=== PATIENT | female | born 1955 | race Caucasian/White ===

== ENCOUNTER 2016-09-28 18:55 | Emergency (ER) | payer BC ==
[2016-09-28 19:06] VITALS: BP 132/70; PULSE 91; RESP 18; TEMP 98.4
--- NOTE | 2016-09-28 19:30 | ED ---
General Adult HPI - General Chief complaint: Extremity Injury, Upper Stated complaint: finger pain Time Seen by Provider: 09/28/16 19:23 Source: patient, RN notes reviewed Mode of arrival: ambulatory Limitations: no limitations - History of Present Illness Initial comments: Patient 61-year-old female who presents emergency room today with a chief complaint of an injury to the right fifth digit that occurred around lunchtime today. She does admit that she was loading a donkey into a vehicle when it moved suddenly and caused injury to the fifth digit. She states she's been unable to extend at the PIP joint since. She does admit to pain locally to this area. She denies any other complaints or symptoms. She does admit she is right-handed. Patient denies any recent fever, chills, shortness of breath, chest pain, back pain, abdominal pain, nausea or vomiting, numbness or tingling , dysuria or hematuria, constipation or diarrhea, headaches or visual changes, or any other complaints. - Related Data Allergies Allergy/AdvReac Type Severity Reaction Status Date / Time No Known Allergies Allergy Verified 09/28/16 19:06 Review of Systems ROS Statement: Those systems with pertinent positive or pertinent negative responses have been documented in the HPI. ROS Other: All systems not noted in ROS Statement are negative. Past Medical History Past Medical History: No Reported History History of Any Multi-Drug Resistant Organisms: None Reported Past Surgical History: Orthopedic Surgery Additional Past Surgical History / Comment(s): ectopic knee Past Psychological History: No Psychological Hx Reported Smoking Status: Current every day smoker Past Alcohol Use History: None Reported Past Drug Use History: None Reported General Exam - General Exam Comments Initial Comments: General: The patient is awake and alert, in no distress, and does not appear acutely ill. Neck: The neck is supple, there is no tenderness or JVD. Cardiovascular: There is a regular rate and rhythm. No murmur, rub or gallop is appreciated. Respiratory: Lungs are clear to auscultation, respirations are non-labored, breath sounds are equal. No wheezes, stridor, rales, or rhonchi. Musculoskeletal: She has right fifth digit flexed at the PIP joint. Locally tender in this area with mild tenderness over the MCP joint. Sensations are intact. No other bony tenderness on exam. Cap refill less than 2 seconds. Pulses equal bilateral 2+ Neurological: A&O x 3. CN II-XII intact, There are no obvious motor or sensory deficits. Coordination appears grossly intact. Speech is normal. Skin: Skin is warm and dry and no rashes or lesions are noted. Psychiatric: Normal mood and affect. Limitations: no limitations Course Vital Signs 09/28/16 19:01 Temperature 98.4 F Pulse Rate 91 Respiratory 18 Rate Blood Pressure 132/70 O2 Sat by Pulse 96 Oximetry Procedures - Procedures Initial comment: Patient's right fifth digit was anesthetized locally at the head of the metacarpals. Area was prepped and cleaned with chlorhexidine. 30-gauge needle used to inject lidocaine 1% without epi at the head of the metacarpal of the fifth digit. Patient's right fifth digit was then reduced. She does show good range of motion at this time. Medical Decision Making - Medical Decision Making His repeat x-ray was showed good realignment and reduction. Patient advised possible trigger finger versus a subluxation of the joint. Advised patient to use finger splint and follow-up with orthopedics over the next 2 days. Disposition Clinical Impression: Finger dislocation Disposition: HOME SELF-CARE Condition: Good Instructions: Finger Dislocation (ED) Additional Instructions: Please use finger splint as discussed and follow-up with orthopedics over the next 2 days. Please return to emergency room for any other concerns. Referrals: Valdez Winter DO [Primary Care Provider] - 1-2 days Nabil Olea MD [STAFF PHYSICIAN] - 1-2 days Time of Disposition: 20:04
--- NOTE | 2016-09-28 19:38 | XR ---
EXAMINATION TYPE: XR hand complete RT DATE OF EXAM: 09/28/2016 7:34 PM COMPARISON: NONE HISTORY: Pain TECHNIQUE: 3 views FINDINGS: There is flexion at the PIP joint of the little finger. I see no fracture nor dislocation. Joint spaces appear normal. IMPRESSION: There is flexion deformity of the little finger. No fracture seen.
--- NOTE | 2016-09-28 20:26 | XR ---
EXAMINATION TYPE: XR finger RT DATE OF EXAM: 09/28/2016 7:55 PM COMPARISON: NONE HISTORY: Post reduction TECHNIQUE: 3 views FINDINGS: I see no fracture nor dislocation. The little finger is in anatomic position. There is norm al extension position of the IP joints of the little finger. IMPRESSION: Anatomic position of the little finger. No fracture seen.
== END 2016-09-28 20:14 | disposition home or self-care (01) ==
LOC: EC 18:55
DX: S63.286A Dislocation of proximal interphalangeal joint of right little finger, initial encounter (principal); F17.200 Nicotine dependence, unspecified, uncomplicated; W55.89XA Other contact with other mammals, initial encounter
CPT/HCPCS: 26770; 99283

== ENCOUNTER → 2017-04-07 | Outpatient (CLI) | payer BC ==
--- NOTE | 2017-04-07 11:36 | XR ---
EXAMINATION TYPE: XR chest 2V DATE OF EXAM: 04/07/2017 COMPARISON: NONE HISTORY: Cough and shortness of breath for 6 weeks TECHNIQUE: Frontal and lateral views of the chest are obtained. FINDINGS: There is no focal air space opacity, pleural effusion, or pneumothorax seen. The cardiac silhouette size is within normal limits although there is tortuosity of both the ascending and descen ding thoracic aorta. The osseous structures are intact. Pulmonary hyperinflation likely relates to degree of inspiration is there is no flattening of the diaphragms on the lateral image. IMPRESSION: No acute cardiopulmonary process.
== END | disposition home or self-care (01) ==
LOC: RADXRYALE 10:29
PROVIDERS: ATTEND Physician Assistant Medical
DX: R06.02 Shortness of breath (principal); R05 Cough
CPT/HCPCS: 71020

== ENCOUNTER 2018-12-22 20:22 | Emergency (ER) | payer BC ==
[2018-12-22 20:37] VITALS: BP 114/79; PULSE 99; RESP 20; TEMP 99
[2018-12-22] MEDS ORDERED: KETOROLAC 30 MG/ML 1 ML VIAL IM STA (20:51)
--- NOTE | 2018-12-22 21:22 | XR ---
EXAMINATION TYPE: XR ankle complete LT, XR foot complete LT DATE OF EXAM: 12/22/2018 CLINICAL HISTORY: Pain and swelling after injury. TECHNIQUE: Frontal, lateral and oblique images of the left ankle and foot are obtained. COMPARISON: None. FINDINGS: There is no acute fracture/dislocation evident in the left ankle. The ankle mortise appea rs within normal limits. The overlying soft tissue appears unremarkable. There is an acute minimally displaced transverse intra-articular fracture through base of fifth metat arsal with 4 to 5 mm distraction noted. Hallux valgus deformity first metatarsophalangeal joint is se en with mild to moderate narrowing and mild spurring. The Esquivel's toe is present. Overlying soft tis joe is unremarkable. IMPRESSION: There is acute mildly displaced transverse fracture base of fifth metatarsal. (Gama typ e fracture). (Initial encounter closed type posttraumatic fracture)
--- NOTE | 2018-12-22 22:12 | ED ---
General Adult HPI - General Chief complaint: Extremity Injury, Lower Stated complaint: Foot injury Time Seen by Provider: 12/22/18 20:43 Source: patient, family Mode of arrival: ambulatory Limitations: no limitations - History of Present Illness Initial comments: Patient is a 63-year-old female presents emergency Department with a chief complaint of left ankle pain. Patient reports accidentally standing up and states that her foot "fell asleep" causing her to roll her ankle. Patient reports pain along the fifth metatarsal as well as no for pain. Patient reports the pain is exacerbated with dorsiflexion and plantar flexion. Patient denies any pain along the medial and lateral malleoli. Patient denies any numbness and tingling. Patient reports ecchymosis and mild edema at the site of tenderness. Patient denies taking any medications to alleviate the symptoms. - Related Data Allergies Allergy/AdvReac Type Severity Reaction Status Date / Time No Known Allergies Allergy Verified 12/22/18 20:37 Review of Systems ROS Statement: Those systems with pertinent positive or pertinent negative responses have been documented in the HPI. ROS Other: All systems not noted in ROS Statement are negative. Past Medical History Past Medical History: No Reported History History of Any Multi-Drug Resistant Organisms: None Reported Past Surgical History: Orthopedic Surgery Additional Past Surgical History / Comment(s): ectopic knee Past Psychological History: No Psychological Hx Reported Smoking Status: Current every day smoker Past Alcohol Use History: None Reported Past Drug Use History: None Reported General Exam - General Exam Comments Initial Comments: General: Well-developed well-nourished distress HEENT: Normocephalic/atraumatic, PERLL, pharynx erythema, swallowing well, EAC no erythema, no exudates, TM clear, no cervical lymph nodes Neck: Supple, nontender, trachea midline Chest/Lungs: Normal respirations, no signs of respiratory distress clear to auscultation bilaterally no wheezes, rales, rhonchi Cardiac: Regular rate and rhythm, normal S1-S2, no murmurs rubs or gallops Abdomen/GI: Soft nontender, bowel sounds equal or quadrant x4, no guarding, no rebound no CVA tenderness Musculoskeletal: Left mid foot tenderness, tenderness along the fifth metatarsal, limited range of motion due to pain, negative anterior drawer test, mild edema and ecchymosis at site of tenderness, distal dorsalis pedis and posterior tibialis bilaterally, patient neurovascularly intact the left foot Skin: Warmth, no rashes or lesions, no cyanosis or diaphoresis Neurologic: AAO x 3, CN 2-12 intact, Psychiatric: Mood and affect normal, judgment normal Limitations: no limitations Course Vital Signs 12/22/18 20:34 Temperature 99 F Pulse Rate 99 Respiratory 20 Rate Blood Pressure 114/79 O2 Sat by Pulse 96 Oximetry Procedures - Orthopedic Splinting/Casting Injury #1 Side: left Lower Extremity Injury Location: foot Lower Extremity Immobilizer: posterior splint, Alexander wrap, synthetic pre-padded splint Other Orthopedic Equipment: crutches Medical Decision Making - Medical Decision Making Patient is a 63-year-old female presenting to emergency Department with a chief complaint of left foot pain. X-ray is indicative of a Gama fracture. Patient was given Toradol to alleviate the pain. Posterior splint was applied. Patient advised to follow-up with orthopedics. Patient advised to alternate between Tylenol and ibuprofen for pain control. Patient advised to apply cold compress to minimize symptoms. Patient advised to avoid weightbearing on the left foot. Patient reports she has crutches at home. Strict return parameters were thoroughly discussed the patient was understanding and agreeable. Case discussed with physician. Disposition Clinical Impression: Gama fracture Disposition: HOME SELF-CARE Condition: Stable Instructions (If sedation given, give patient instructions): Foot Fracture in Adults (ED) Additional Instructions: Please follow up with orthopedics. Please return to emergency department if symptoms worsen. Alternate between Tylenol and ibuprofen for pain control. Apply ice compress to minimize symptoms. Is patient prescribed a controlled substance at d/c from ED?: No Referrals: Valdez Winter DO [Primary Care Provider] - 1-2 days Jason Dixon DO [Medical Doctor] - 1-2 days Time of Disposition: 22:14
== END 2018-12-22 22:20 | disposition home or self-care (01) ==
LOC: EC 20:22
DX: S92.352A Displaced fracture of fifth metatarsal bone, left foot, initial encounter for closed fracture (principal); F17.200 Nicotine dependence, unspecified, uncomplicated; X50.1XXA Overexertion from prolonged static or awkward postures, initial encounter
CPT/HCPCS: 73610; 73630; 99283; 29515; 96372; J1885

== ENCOUNTER 2019-01-03 20:01 | Emergency (ER) | payer BC ==
[2019-01-03 20:21] VITALS: BP 149/93; RESP 18; TEMP 98.2
--- NOTE | 2019-01-03 20:34 | ED ---
General Adult HPI - General Chief complaint: Extremity Injury, Upper Stated complaint: Shoulder injury Time Seen by Provider: 01/03/19 20:25 Source: patient, RN notes reviewed Mode of arrival: ambulatory Limitations: no limitations - History of Present Illness Initial comments: Patient is a pleasant 63-year-old female presenting to the emergency Department with complaints of right shoulder discomfort. Less than 2 hours prior to arrival patient was walking on the steps when she tripped and ran into a wall at the landing. Patient cut herself with her right arm and hand. Patient has had right shoulder discomfort since that time. Discomfort increases greatly with any movement. No history of significant shoulder injury previously. No other area of injury. No head injury or loss of consciousness. Discomfort does radiate from the shoulder towards the neck and down the arm. - Related Data Home Medications Medication Instructions Recorded Confirmed No Known Home Medications 01/03/19 01/03/19 Allergies Allergy/AdvReac Type Severity Reaction Status Date / Time No Known Allergies Allergy Verified 01/03/19 20:29 Review of Systems ROS Statement: Those systems with pertinent positive or pertinent negative responses have been documented in the HPI. ROS Other: All systems not noted in ROS Statement are negative. Constitutional: Denies: fever Eyes: Denies: eye pain ENT: Denies: ear pain Respiratory: Denies: cough, dyspnea Cardiovascular: Denies: chest pain Endocrine: Denies: fatigue Gastrointestinal: Denies: abdominal pain Genitourinary: Denies: dysuria Musculoskeletal: Reports: as per HPI Skin: Denies: rash Neurological: Denies: weakness Past Medical History Past Medical History: Asthma History of Any Multi-Drug Resistant Organisms: None Reported Past Surgical History: Orthopedic Surgery Additional Past Surgical History / Comment(s): ectopic knee Past Psychological History: No Psychological Hx Reported Smoking Status: Current every day smoker Past Alcohol Use History: None Reported Past Drug Use History: None Reported General Exam Limitations: no limitations General appearance: alert, in no apparent distress Head exam: Present: atraumatic Eye exam: Present: normal appearance Neck exam: Present: normal inspection. Absent: tenderness Respiratory exam: Present: normal lung sounds bilaterally Cardiovascular Exam: Present: regular rate, normal rhythm Expanded Peripheral pulses: 2+: Radial (R) GI/Abdominal exam: Present: soft. Absent: tenderness Extremities exam: Present: tenderness (Right shoulder is diffusely. No other bony area of tenderness.), other (Distally the extremity is resting tach. Full range of motion at the elbow. Limited range of motion at the shoulder secondary to discomfort.) Back exam: Present: normal inspection. Absent: vertebral tenderness Neurological exam: Present: alert. Absent: motor sensory deficit Psychiatric exam: Present: normal affect, normal mood Skin exam: Present: normal color. Absent: rash Course Vital Signs 01/03/19 20:19 Temperature 98.2 F Pulse Rate 83 Respiratory 18 Rate Blood Pressure 149/93 O2 Sat by Pulse 94 L Oximetry Medical Decision Making - Medical Decision Making Patient reevaluated and updated. - Radiology Data Radiology results: image reviewed (Right shoulder x-ray does show some subacromial joint space narrowing. No acute fracture.) Disposition Clinical Impression: Sprain of shoulder Disposition: HOME SELF-CARE Condition: Stable Instructions (If sedation given, give patient instructions): Shoulder Sprain (ED) Additional Instructions: Please follow-up with primary care physician in the next couple days for recheck. You may also follow-up with orthopedics. Sling as needed. [id number] ibuprofen as needed. If symptoms continue you may need physical therapy or further evaluation. Return for increased pain, weakness, wo rsening symptoms or other concerns. Is patient prescribed a controlled substance at d/c from ED?: No Referrals: Valdez Winter DO [Primary Care Provider] - 1-2 days Shola Grajeda MD [STAFF PHYSICIAN] - 1-2 days Time of Disposition: 21:01
--- NOTE | 2019-01-03 20:50 | XR ---
EXAMINATION TYPE: XR shoulder complete RT DATE OF EXAM: 01/03/2019 COMPARISON: NONE HISTORY: Shoulder pain TECHNIQUE: 3 views FINDINGS: I see no fracture nor dislocation. There is narrowing of the subacromial joint space. There are no pathologic calcifications. IMPRESSION: There is some subacromial joint space narrowing. No fracture seen.
[2019-01-03] MEDS ORDERED: KETOROLAC 60 MG/2 ML VIAL IM STA (20:59)
[2019-01-03] MEDS ORDERED: ACET/COD 300 MG/30 MG STARTER PACK 6 TAB BTL PO STA (21:00)
[2019-01-03 21:19] VITALS: PULSE 82
== END 2019-01-03 21:17 | disposition home or self-care (01) ==
LOC: EC 20:01
DX: S43.401A Unspecified sprain of right shoulder joint, initial encounter (principal); F17.200 Nicotine dependence, unspecified, uncomplicated; W01.198A Fall on same level from slipping, tripping and stumbling with subsequent striking against other object, initial encounter; Y93.01 Activity, walking, marching and hiking
CPT/HCPCS: 73030; 99283; 96372; J1885

== ENCOUNTER 2019-07-07 00:38 | Emergency (ER) | payer BC ==
[2019-07-07] MEDS ORDERED: SODIUM BICARB 8.4% 50 ML SYR (1 MEQ/ML) ONE (00:48)
[2019-07-07] MEDS ORDERED: ATROPINE SULFATE 0.1 MG/ML 10ML SYRINGE ONE (00:48)
[2019-07-07] MEDS ORDERED: EPINEPHrine 10 ML SYRINGE (0.1 MG/ML) ONE (00:48)
[2019-07-07] MEDS ORDERED: CALCIUM CHLORIDE 100 MG/ML 10 ML SYRINGE ONE (00:48)
--- NOTE | 2019-07-07 02:03 | ED ---
CPR HPI - General Stated Complaint: CPR - History of Present Illness Initial Comments: Naida is a 64 yo female is brought to the ER today by EMS today with CPR in progress. Per EMS patient woke her complaining of sudden onset of severe chest pain, 911 was called however 5 minutes later 911 is again called reporting that she had lost pulses, family began CPR, fire department arrived on scene and continued CPR. EMS arrived on scene, patient be in asystole, CPR was continued and patient was found to have return of spontaneous circulation at which time decision was made to transport to the hospital. In route to the hospital patient again lost pulses and ACLS protocols were continued. Patient regained pulses one more time prior to arrival however again lost pulses. Upon arrival CPR was in progress. - Related Data Home Medications Medication Instructions Recorded Confirmed No Known Home Medications 01/03/19 01/03/19 Allergies Allergy/AdvReac Type Severity Reaction Status Date / Time No Known Allergies Allergy Verified 01/03/19 20:29 Review of Systems ROS Statement: Those systems with pertinent positive or pertinent negative responses have been documented in the HPI. ROS Other: All systems not noted in ROS Statement are negative. Past Medical History Past Medical History: Asthma History of Any Multi-Drug Resistant Organisms: None Reported Past Surgical History: Orthopedic Surgery Additional Past Surgical History / Comment(s): ectopic knee Past Psychological History: No Psychological Hx Reported Smoking Status: Current every day smoker Past Alcohol Use History: None Reported Past Drug Use History: None Reported General Exam - General Exam Comments Initial Comments: Physical Exam GENERAL: Unresponsive, CPR in progress HENT: Normocephalic, Atraumatic. EYES: Pupils 4mm sluggish PULMONARY: No spontaneous respirations, coarse breath sounds bilaterally with bagging CARDIOVASCULAR: Pulseless upon arrival Bedside ultrasound shows pericardial effusion with no evidence of tamponade ABDOMEN: Non-distended SKIN: Cool extremities : Deferred NEUROLOGIC: Unresponsive MUSCULOSKELETAL: No obvious trauma PSYCHIATRIC: Unresponsive Course Vital Signs 07/07/19 00:42 Pulse Rate [ 96 Right Supine Carotid] Medical Decision Making - Medical Decision Making Patient was seen and evaluated immediately upon arrival to the emergency department, CPR and resuscitation were continued per ACLS protocol. Patient initially regained pulses, bedside ultrasound reveals a small her cardi al effusion, question of the abdomen reveals an aorta with a flap concerning for aortic dissection decision was made to take the patient immediately to CT Upon arrival CT patient bradyed down and lost pulses, resuscitation efforts were continued per ACLS protocols Given the prolonged down time calcium and bicarb were administered in addition to epinephrine and continued compressions. Patient was found to be in V. fib and was defibrillated, ACLS protocol continued, again pulses were obtained, an epinephrine drip was prepared and patient was started for computed tomography scan while in CT was noted the patient became bradycardiac, and again the patient lost pulses. At that time decision was made to discontinue resuscitation efforts as the patient's down time was greater than 2 hours, patient's abdomen had become rigid with mottled skin concerning for ischemic injury there is concern the patient have poor neurologic outcome if ROSC was obtained. Time of 1:16 AM. - Lab Data Lab Results 07/07/19 07/07/19 Range/Units 00:46 00:58 Blood Type B Positive Blood Type Confirm B Positive Blood Type Recheck No Previous Record Bld Type Recheck Status CABO Indicated Antibody Screen NEGATIVE Crossmatch See Detail Spec Expiration Date 07/10/2019 - 1857 - EKG Data -: EKG Interpreted by Me EKG Comments: EKG was obtained after we had return of spontaneous circulation, EKG was obtained 12:43 AM, rate is 80 rhythm is sinus. Normal axis, there are normal intervals, AK 166, QRS 80, QTC is [address] elevations but there is noted to be ST depressions in V3-5 concerning for ischemia without evidence of acute infarction. Critical Care Time Critical Care Time: Yes Total Critical Care Time: 30 Critical Care Time: Critical Care Time Critical care time was exclusive of separately billable procedures and treating other patients and teaching time. Critical care was necessary to treat or prevent imminent or life-threatening det erioration. Given the critical condition in which the patient arrived, the patient was immediately assessed by myself and the nurse, and cardiac monitoring initiated due to the potential for rapid decompensation of the patient's clinical condition. During the course of the patients stay, I spent a considerable amount of time at the bedside performing serial re-evaluations of the patient's hemodyn amic and clinical status because of the recognized potential threat to life or limb in this condition. I then had a chance to review not only all of the available current laboratory and radiographic studies obtained today, but I also reviewed old records available to me at the time. Additionally, any ancillary information available including computer technology trainer records were reviewed. Sequential vital signs were obtained. Disposition Clinical Impression: Cardiac arrest Disposition: Referrals: Valdez Winter DO [Primary Care Provider] - 1-2 days Preliminary Cause of : Cardiac arrest
[2019-07-07 03:16] VITALS: PULSE 96
== END 2019-07-07 04:45 | disposition expired ==
LOC: EC 00:38
DX: I46.9 Cardiac arrest, cause unspecified (principal); I31.3 Pericardial effusion (noninflammatory); F17.200 Nicotine dependence, unspecified, uncomplicated
CPT/HCPCS: 86850; 86900; 86901; 86920; 92950; 93005; 99291